=== PATIENT | female | born 1985 | race Caucasian/White ===

== ENCOUNTER 2021-09-20 03:23 | Emergency (ER) | payer OTHER, SELFPAY ==
--- NOTE | 2021-09-20 03:27 | ED.FEMALEGU ---
HPI - Female Genitourinary General Chief complaint: Urogenital-Female Stated complaint: UTI/BACK PAIN Time Seen by Provider: 09/20/21 03:27 History of Present Illness HPI Narrative: 35-year-old female nonsmoker presents with her daughter and a chief complaint of a relatively sudden onset left flank pain that was intense for a period time before resolving without any obvious palliation. She states it may have radiated around her side a bit but she is currently pain-free. She denies any fever or chills. She denies nausea, vomiting or diarrhea. She denies any chest pain or shortness of breath. She does state that she had some urinary urgency over the past few days and is concerned that she may have a urine infection. She denies any vaginal bleeding or discharge Related Data Previous Rx's Medication Instructions Recorded cephalexin 500 mg capsule 500 mg PO BID #10 caps 09/20/21 hydrocodone 5 mg-acetaminophen 325 1 tab PO Q4-6H PRN pain #10 tabs 09/20/21 mg tablet ketorolac 10 mg tablet 10 mg PO Q6H PRN pain #14 tabs 09/20/21 tamsulosin 0.4 mg capsule (Flomax) 0.4 mg PO DAILY #30 caps 09/20/21 Allergies Allergy/AdvReac Type Severity Reaction Status Date / Time ciprofloxacin [CIPROFLOXACIN] Allergy Severe Unverified 07/07/17 12:28 Review of Systems Review of Systems Narrative: GENERAL: Denies chills, fatigue, malaise, fever, sweats. HEENT: Denies sinus pain, ear pain, sore throat, difficulty swallowing, dizziness. RESPIRATORY: Denies dyspnea, cough, wheezing, hemoptysis, sputum. CARDIOVASCULAR: Denies chest pain, palpitations, orthopnea, edema, GASTROINTESTINAL: Denies nausea, vomiting, abdominal pain, diarrhea, constipation, melena. : See HPI MUSCULOSKELETAL: denies weakness, joint pain, or bony pain SKIN: Denies rash, skin lesions, or other NEUROLOGIC: Denies weakness, headache, numbness, change in speech, confusion, seizures, incoordination. PSYCHIATRIC: No concerning psychosocial issues. 12 point review of systems is negative except for those stated above Patient History Family History Sister Spina bifida Sister Celiac disease Exam Narrative Exam Narrative: GENERAL: [35] year old patient appears stated age. Well-developed patient, in mild distress. HEAD: Atraumatic. Normocephalic. EYES: Pupils equal round and reactive. Extraocular motions intact. No scleral icterus. No injection or drainage. ENT: Nose without bleeding, purulent drainage. Throat without erythema, tonsillar hypertrophy or exudate. Airway patent. NECK: Trachea midline. Non tender CARDIOVASCULAR: Regular rate and rhythm without murmurs, gallops, or rubs. RESPIRATORY: Clear to auscultation. Breath sounds equal bilaterally. No wheezes, rales, or rhonchi. GASTROINTESTINAL: Abdomen soft, non-tender, nondistended. EXTREMITIES: No edema or joint tenderness. BACK: Nontender without deformity or crepitance. No flank tenderness. NEURO: AOx3. SKIN: No rash or erythema of visible areas Initial Vital Signs Initial Vital Signs: Vital Signs Temperature 97.9 F 09/20/21 03:35 Pulse Rate 88 09/20/21 03:35 Respiratory Rate 20 09/20/21 03:35 Blood Pressure 145/88 H 09/20/21 03:35 Pulse Oximetry 100 09/20/21 03:35 Oxygen Delivery Method 09/20/21 03:35 Course Orders Ordered: ED Orders 09/20/21 03:35 Urine Microscopic Stat 09/20/21 03:39 CT kidney ureter bladder (KUB) Stat Discontinued Medications Hydrocodone Bitart/Acetaminophen (Hydrocodone/Acet 5/325 Prepack) 1 bottle MISC SEEINSTR ONE Stop: 09/20/21 06:03 Last Admin: 09/20/21 06:08 Dose: 1 bottle Ondansetron HCl (Ondansetron 4 Mg Odt Prepack) 1 bottle MISC SEEINSTR ONE Stop: 09/20/21 06:03 Last Admin: 09/20/21 06:08 Dose: 1 bottle Vital Signs Vital signs: Vital Signs - 8 hr 09/20/21 03:35 Temperature 97.9 F Pulse Rate 88 Respiratory Rate 20 Blood Pressure 145/88 H Pulse Oximetry 100 Oxygen Delivery Method Room Air MDM - Female Genitourinary Lab Data Labs: Lab Results 09/20/21 Range/Units 03:35 Urine RBC 1-5/hpf (0-5/HPF) Urine WBC 0-1/hpf (0-5/HPF) Ur Squamous Epith Cells 0-1 /hpf (0-5/HPF) Urine Bacteria Few (2-10) H (None) Ur Culture Indicated? Cult not indicated Point of Care Testing Test Results Negative Urine Dip Bedside Urine Glucose Negative Bedside Urine Bilirubin - Negative Bedside Urine Ketone - Negative Urine Specific [place] 1.010 Bedside Urine Occult Blood +++ Bedside Urine pH 6.0 Bedside Urine Protein - Negative Bedside Urine Urobilinogen - Negative Bedside Urine Nitrite - Negative Bedside Urine Leukocytes - Negative Esterase Imaging Data CT scan - abdomen/pelvis: Radiologist's Impression: Mild left-sided hydroureteronephrosis with calculus present at the left UVJ measuring 7 mm MDM Narrative Medical decision making narrative: Patient symptom free for the duration of her visit. She obviously has pain well controlled and is tolerating orals. She shows no signs of sepsis and has reassuring vitals. Urine POC shows no sign of infection, but urinalysis does show some bacteria, hence my decision to use antibiotics in the setting of a stone. She has been given extensive return precautions and questions have been answered to her apparent satisfaction Discharge Plan Departure Patient Disposition: Home Clinical Impression: Kidney stone Instructions: DI for Kidney Stones Activity Restrictions/Additional Instructions: *You have been diagnosed with [7 mm kidney stone on the left side] *What to do: *Please continue to take your regular medications as directed. [ x] New medication prescriptions sent to your pharmacy: [ [facility]] [ ] New medication written as a paper prescription [ ] No new medications given *Please follow up with your primary care provider in 2-3 days, call for an appointment. Let them know you were seen in the Emergency Department and that we ask that you be seen in follow up. We will electronically transmit a record of today's note if your PCP is in our system *As we discussed, I've included contact info for the local urology clinic, please call the office, let them know he been seen in the emergency department and would like you seen in follow-up. *If you do not have a primary care provider please contact the [facility] Resource line at [phone]. They will ask some questions about your medical history and help get you set up with a doctor in the community. *Return to Emergency Department if you should have any new, worsening or concerning symptoms, such as [fever greater than 101 F, shaking chills, worsening pain, persistent vomiting or other bothersome symptoms] Prescriptions: New hydrocodone-acetaminophen 5-325 mg tablet 1 tab PO Q4-6H PRN (Reason: pain) Qty: 10 0RF ketorolac 10 mg tablet 10 mg PO Q6H PRN (Reason: pain) Qty: 14 0RF tamsulosin [Flomax] 0.4 mg capsule 0.4 mg PO DAILY Qty: 30 0RF cephalexin 500 mg capsule 500 mg PO BID Qty: 10 0RF Referrals: Elizabeth Rivas PA-C [Primary Care Provider] - Mariah Saleh MD [Physician] -
[2021-09-20 03:35] VITALS: BP 145/88; PULSE 88; RESP 20; TEMP 36.6; O2SAT 100; BMI 72.2
--- NOTE | 2021-09-20 03:39 | DI.CT.S_ITS ---
PROCEDURE: CT KIDNEY URETER BLADDER (KUB) INDICATIONS: flank pain, hematuria, no obvious UTI TECHNIQUE: Axial sections were acquired from the lung bases to the pubic symphysis. Coronal and sagittal reformats were performed. For radiation dose reduction, the following was used: automated exposure control, adjustment of mA and/or kV according to patient size. COMPARISON: None. FINDINGS: Included portions of the lung bases are clear. Normal unenhanced CT appearance of the liver, spleen, pancreas, gallbladder, adrenal glands, and right kidney. Mild left hydroureteronephrosis. Left UPJ calculus measuring 7 mm (series 2, image 73). Calculus density is approximately 600-700 Hounsfield units. Urinary bladder is normal. IUD in the uterus. Ovaries grossly normal. Physiologic free pelvic fluid. No acute osseous abnormality. IMPRESSION: Mild left hydroureteronephrosis with obstructing left UPJ calculus measuring 7 mm Dictated by: Edson Pollock M.D. on 09/20/2021 at 9:04 Approved by: Edson Pollock M.D. on 09/20/2021 at 9:06
[2021-09-20 03:56] LABS: Bacteria Urine Few (2-10); RBC Urine 1-5/HPF (0-5/HPF); Squamous Epithelial Cell Urine 0-1 /HPF (0-5/HPF); WBC Urine 0-1/HPF (0-5/HPF)
[2021-09-20 03:57] LABS: Culture Indicated Urine Cult Not Indicated
[2021-09-20] MEDS: HYDROCODONE/ACET 5/325 PREPACK 1 BOTTLE MISC (06:08)
[2021-09-20] MEDS: ONDANSETRON 4 MG ODT PREPACK 1 BOTTLE MISC (06:08)
[2021-09-20 06:20] VITALS: BP 138/85; PULSE 81; RESP 16; O2SAT 100
== END 2021-09-20 06:22 | disposition home or self-care (01) ==
PROVIDERS: Emergency Provider Emergency Medicine; Family Provider Internal Medicine; PCP Physician Assistant
DX: N20.0 Calculus of kidney (principal)
CPT/HCPCS: 74176; 81003; 81015; 81025; 99283; 99284

== ENCOUNTER 2024-05-03 15:53 | Emergency (ER) | payer OTHER, SELFPAY ==
[2024-05-03 16:28] VITALS: BP 123/77; PULSE 72; RESP 18; TEMP 36.9; O2SAT 99; BMI 33.9
--- NOTE | 2024-05-03 17:10 | ED.HEATRA ---
HPI - Head Injury General Chief complaint: Head Injury Stated complaint: GLF, Head Injury Time Seen by Provider: 05/03/24 17:10 Source: patient Mode of arrival: Ambulatory History of Present Illness HPI Narrative: Ms. Nj is a pleasant 38-year-old female with no reported past medical history who presents to the emergency department for headache after slip and fall causing her to hit the back of her head on the concrete. Patient states she was walking down her driveway when she slipped on ice falling backwards hitting the back of her head on the concrete. She did not lose consciousness. She did sustain a very small abrasion on the back of her scalp. Denies visual disturbances, she does feel slightly lightheaded and has a slight left-sided headache however overall she feels pretty normal. She is most concerned because she has a single parent her daughter and she is worried given how hard she hit her head she does not want something to happen while she is home alone with her daughter. She denies vomiting after the injury, she is slight left-sided neck pain, no pain with range of motion of the neck. No pain of any of her extremities or back. No blood thinners. Related Data Previous Rx's Medication Instructions Recorded cephalexin 500 mg capsule 500 mg PO BID #10 caps 09/20/21 hydrocodone 5 mg-acetaminophen 325 1 tab PO Q4-6H PRN pain #10 tabs 09/20/21 mg tablet ketorolac 10 mg tablet 10 mg PO Q6H PRN pain #14 tabs 09/20/21 tamsulosin 0.4 mg capsule (Flomax) 0.4 mg PO DAILY #30 caps 09/20/21 Allergies Allergy/AdvReac Type Severity Reaction Status Date / Time ciprofloxacin [CIPROFLOXACIN] Allergy Severe Unverified 07/07/17 12:28 Review of Systems Review of Systems ROS Unobtainable: All systems reviewed & are unremarkable except as noted in HPI and below Patient History Family History Sister Spina bifida Sister Celiac disease Social History Smoking Status: Never smoker Smoking Status: Never smoker alcohol intake frequency: holidays/special occasions only Exam Narrative Exam Narrative: GENERAL: 38 year old patient appears stated age. Well-developed patient, in no acute distress. HEAD: Atraumatic. Normocephalic. 0.5 cm abrasion on back of scalp, occipital region. EYES: PERRL. Extraocular motions intact. No scleral icterus. No injection or drainage. ENT: Nose without bleeding, purulent drainage. Throat without erythema, tonsillar hypertrophy or exudate. Airway patent. NECK: Trachea midline. Cervical ROM intact. No midline bony tenderness. CARDIOVASCULAR: Regular rate and rhythm. RESPIRATORY: ?Nonlabored respirations. ?Speaking in clear, full sentences. ?Clear to auscultation. Breath sounds equal bilaterally. No wheezes, rales, or rhonchi. ? GASTROINTESTINAL: Abdomen soft, non-tender, nondistended. EXTREMITIES: No edema or joint tenderness. BACK: Nontender without deformity or crepitance. No flank tenderness. NEURO: AOx3. ?Clear speech. ?Moves all 4 extremities appropriately. No facial asymmetry. Sensation intact to light touch throughout the face and body. Normal [id number], heel-ruiz, rapid alternating movements. SKIN: No rash or erythema of visible areas except for posterior scalp abrasion mentioned above. Initial Vital Signs Initial Vital Signs: Vital Signs Temperature 98.5 F 05/03/24 16:28 Pulse Rate 72 05/03/24 16:28 Respiratory Rate 18 05/03/24 16:28 Blood Pressure 123/77 05/03/24 16:28 Pulse Oximetry 99 05/03/24 16:28 Oxygen Delivery Method Room Air 05/03/24 16:28 Scores Nexus Score for C-Spine Focal Neurologic deficit present: No Midline spinal tenderness present: No Altered level of conciousness present: No Intoxication present: No Distracting Injury Present: No Nexus Criteria for C-spine: 0 Course Orders Ordered: ED Orders 05/03/24 17:24 CT head/brain wo con Stat Discontinued Medications Acetaminophen (Acetaminophen 325 Mg Tablet) 975 mg PO NOW ONE Stop: 05/03/24 17:25 Last Admin: 05/03/24 17:38 Dose: 975 mg Documented By: FELIZ Vital Signs Vital signs: Vital Signs - 8 hr 05/03/24 16:28 05/03/24 18:50 Temperature 98.5 F Pulse Rate 72 69 Respiratory Rate 18 16 Blood Pressure 123/77 120/71 Pulse Oximetry 99 99 Oxygen Delivery Method Room Air Room Air MDM - Head Injury Medical Records Attestation: I reviewed the patient's medical records. Imaging Data CT scan - head: Radiologist's Impression: PROCEDURE: CT HEAD/BRAIN WO CON INDICATIONS: slip and fall hit back of head; L sided YI TECHNIQUE: Noncontrast 4.5 mm thick angled axial sections acquired from the foramen magnum to the vertex, with coronal and sagittal reformats. For radiation dose reduction, the following was used: automated exposure control, adjustment of mA and/or kV according to patient size. COMPARISON: None. FINDINGS: Image quality: Diagnostic. CSF spaces: Basal cisterns are patent. No extra-axial fluid collections. Ventricles are normal in size and shape. Brain: No midline shift. No intracranial masses or hemorrhage. [place]-white matter interface is normal. Skull and face: Calvarium and visualized facial bones are intact, without suspicious lesions. Sinuses: Visualized sinuses and mastoids are clear. IMPRESSION: No acute intracranial pathology. [facility] Narrative Medical decision making narrative: 38-year-old female with no reported past medical history who presents to the emergency department for headache after slip and fall causing her to hit the back of her head on the concrete. Differential diagnosis includes but is not limited to closed head injury, concussion, intracranial injury, etc. On exam patient is in no acute distress, nontoxic appearing, vital signs appropriate. She has no focal neurologic deficits however she did hit her occipital skull on the ground now with left-sided headache, lightheadedness, patient is very concerned because she is solo parent would feel safest getting head CT. Some left-sided neck pain, no midline tenderness or deficits, nexus score excludes need for CT neck imaging. We will treat with Tylenol and proceed with head CT. Patient's CT reveals no acute intracranial pathology. Discussed possible concussion and the importance of mental rest, decreased visual stimulation, avoiding secondary head injury. Recommended ibuprofen/Tylenol if needed for pain, discussed strict ED return precautions. Patient verbalized understanding of all information is happy with the plan. She is stable for discharge home. Discharge Plan Departure Patient Disposition: Home Clinical Impression: Fall from slipping on ice Qualifiers: Encounter type: initial encounter Qualified Code(s): W00.9XXA - Unspecified fall due to ice and snow, initial encounter Closed head injury Qualifiers: Encounter type: initial encounter Qualified Code(s): S09.90XA - Unspecified injury of head, initial encounter Instructions: DI for Closed Head Injury Activity Restrictions/Additional Instructions: Thank you for coming into the emergency department. Today you were evaluated for head injury after a slip and fall onto the back of your head. A CT scan of your head was obtained which reveals no abnormalities. It is very important to rest, decrease mental stimulation such as looking at screen/TV, use ibuprofen/Tylenol if needed for pain, return to the emergency department if you develop any new or worsening symptoms such as sudden severe pain, persistent vomiting, confusion, etc. Please avoid any activities that can increase risk of head injury for at least the next 1-2 weeks. Please take Ibuprofen (Motrin/Advil) or Acetaminophen (Tylenol) for pain. These are available over the counter. You may take Ibuprofen 600 mg every 8 hours with food for pain. You may also take Acetaminophen 650 mg every 4-6 hours for pain. Do not exceed 3000 mg of Tylenol a day as this can cause liver damage. Do not drink alcohol with either of these medications. Please follow up with your primary care doctor within the next 2-3 days for ER follow-up. (If you do not have a PCP you can call [phone]. ?to schedule an appointment with an [facility] Primary Care Provider) IF YOU DEVELOP ANY NEW OR WORSENING SYMPTOMS, RETURN TO THE ER! Please read the attached instructions, they highlight more specific treatments and interventions for you at home. Thank you for letting me participate in your care, Bushra Abernathy PA-C Prescriptions: No Action hydrocodone-acetaminophen 5-325 mg tablet 1 tab PO Q4-6H PRN (Reason: pain) Qty: 10 0RF ketorolac 10 mg tablet 10 mg PO Q6H PRN (Reason: pain) Qty: 14 0RF tamsulosin [Flomax] 0.4 mg capsule 0.4 mg PO DAILY Qty: 30 0RF cephalexin 500 mg capsule 500 mg PO BID Qty: 10 0RF Referrals: Elizabeth Rivas PA-C [Primary Care Provider] - Stand Alone Forms: Patient Portal/API/Survey
--- NOTE | 2024-05-03 17:24 | DI.CT.S_ITS ---
PROCEDURE: CT HEAD/BRAIN WO CON INDICATIONS: slip and fall hit back of head; L sided YI TECHNIQUE: Noncontrast 4.5 mm thick angled axial sections acquired from the foramen magnum to the vertex, with coronal and sagittal reformats. For radiation dose reduction, the following was used: automated exposure control, adjustment of mA and/or kV according to patient size. COMPARISON: None. FINDINGS: Image quality: Diagnostic. CSF spaces: Basal cisterns are patent. No extra-axial fluid collections. Ventricles are normal in size and shape. Brain: No midline shift. No intracranial masses or hemorrhage. [place]-white matter interface is normal. Skull and face: Calvarium and visualized facial bones are intact, without suspicious lesions. Sinuses: Visualized sinuses and mastoids are clear. IMPRESSION: No acute intracranial pathology. Dictated by: Sonido Gregory M.D. on 05/03/2024 at 18:08 Approved by: Sonido Gregory M.D. on 05/03/2024 at 18:09
[2024-05-03] MEDS: ACETAMINOPHEN 325 MG TABLET 975 MG PO (17:38)
[2024-05-03 18:50] VITALS: BP 120/71; PULSE 69; RESP 16; O2SAT 99
== END 2024-05-03 18:51 | disposition home or self-care (01) ==
PROVIDERS: Emergency Provider Physician Assistant; Family Provider Internal Medicine; PCP Physician Assistant
DX: S00.01XA Abrasion of scalp, initial encounter (principal); W00.0XXA Fall on same level due to ice and snow, initial encounter
CPT/HCPCS: 70450; 99283; 99284